=== PATIENT | female | born 1930 | race Caucasian/White ===

== ENCOUNTER 2018-01-15 08:51 | Outpatient (CLI) | payer MEDICARE, BC, OTHER ==
--- NOTE | 2018-01-15 16:20 | NM ---
NUCLEAR MEDICINE BONE SCAN 3-PHASE AND WHOLE BODY: DATE: 01/15/18. HISTORY: An 87-year-old female with a history of multiple fractures in multiple bones, most recently right rib pain from fall. History of breast cancer. History of left hip replacement surgery in September 2015 . Left hip pain. TECHNIQUE: IV injection of 33 mCi of Technetium 99m-MDP. Dynamic anterior scintigraphy of pelvis and bilateral thighs. Immediate blood pool images of pelvis. Three-hour delayed whole body skeletal scintigraphy in anterior and posterior views. FINDINGS: There are 4 small foci of highly increased bone uptake involving the anterior aspects of the right 4t h rib and right 5th rib, consistent with recent fractures. There is a focus of increased uptake at t he lateral, anterior-distal aspect of the left 8th or 9th rib. There is a levoscoliosis of the lumba r spine, with associated mildly increased uptake representing lumbar spondylosis. Photopenic defect a t left anterior upper chest represents AICD generator. There is a photopenic defect at the expected location of the left femoral head and neck, extending in to the proximal shaft, representing metallic prosthesis. There is diffusely moderately increased upt marce around the femoral stem, and left lateral acetabular roof. Apparently increased uptake along the anterior edge of left iliac wing is probably due to the fact that it is closer to the detectore. The re is somewhat intensely increased uptake in the proximal-mid femoral diaphysis around the distal tip of the femoral stem. Asymmetrically increased uptake in the right foot and one of the right toes. In the dynamic and immediate blood pool images, there is no convincing evidence of increased blood fl ow or increased soft tissue uptake around the left hip prosthesis. IMPRESSION: 1. Increased bone uptake at the distal tip of the stem of the left hip replacement arthroplasty hard lee is abnormal after 2 years post surgery, suggestive of early hardware loosening . 2. No evidence of cellulitis around the left hip, and therefore, this makes osteomyelitis unlikely. 3. Evidence for acute, traumatic, nondisplaced fractures of the right 4th and 5th ribs, and the ante rolateral aspect of the left 8th or 9th rib. 4. Lower lumbar scoliosis. 5. Nonspecific increased uptake in the right foot. 6. No convincing evidence of skeletal metastasis. POS: [facility]
== END 2018-01-15 08:52 | disposition home or self-care (01) ==
LOC: NM 08:51
PROVIDERS: ATTEND Family Medicine
DX: Z47.1 Aftercare following joint replacement surgery (principal); S22.43XA Multiple fractures of ribs, bilateral, initial encounter for closed fracture; L03.116 Cellulitis of left lower limb; M41.126 Adolescent idiopathic scoliosis, lumbar region; Z96.642 Presence of left artificial hip joint
CPT/HCPCS: 78315; A9503

== ENCOUNTER 2018-06-24 14:00 | Inpatient (IN) | payer MEDICARE, BC, OTHER ==
[2018-06-24 14:28] VITALS: BMI 27.8
[2018-06-24 15:49] LABS: #Eosinphils 0.2 thou/uL (0.0-0.7); #Lymphocytes 1.9 thou/uL (1.20-3.40); #Monocytes 0.7 thou/uL (0.11-0.59); #Neutrophils 2.9 thou/uL (1.40-6.50); %Basophils 0.3 % (0.0-1.0); %Eosinophils 3.9 % (0.0-10.0); %Lymphocytes 32.7 % (21.0-51.0); %Monocytes 11.4 % (0.0-10.0); %Neutrophils 51.6 % (42.0-75.0); Hemoglobin 9.8 g/dL (12.0-16.0); Mean Corpuscular HGB CONC 34.2 g/dL (32.0-36.0); Mean Corpuscular Hemoglobin 32.6 pg (27.0-31.0); Mean Corpuscular Volume 95.3 fL (78.0-98.0); Mean Platelet Volume 10.6 fL (7.4-10.4); Platelet Count 165 thou/uL (130-400); RBC Distribution Width 13.1 % (11.5-14.5); Red Blood Cell (RBC) Count 3.02 mill/uL (4.20-5.40); White Blood Cell (WBC) Count 5.7 thou/uL (4.8-10.8)
[2018-06-24 15:54] LABS: INR-International Normal Ratio 1.1; Prothrombin Time 14.1 SEC (12.0-14.7)
[2018-06-24 15:58] LABS: Bilirubin Negative (Negative); Blood, Urine Moderate (Negative); Clarity TURBID (Clear); Glucose, Urine (Dipstick) Negative (Negative); Leukocyte Large (Negative); Nitrite Positive (Negative); Protein, Urine (Dipstick) 30 mg/dL (Neg-Trace); Specific Gravity, Urine 1.015 (1.002-1.036); Urobilinogen 0.2 mg/dL (0.2-1.0); pH, Urine 6.5 (5.0-9.0)
[2018-06-24 16:00] LABS: Squamous Epithelial 0-3 HPF (0-3)
[2018-06-24 16:02] LABS: Pathc Cast-AUWi Flag 7.02 (0-2.49); Yeast-AUWi Flag 106.8 (0-25.0)
[2018-06-24 16:08] LABS: Anion Gap 13 mmol/L (10-20); BUN (Urea Nitrogen) 34 mg/dL (9.8-20.1); Calc. Creatinine Clearance 0 mL/min (70-130); Calcium 8.7 mg/dL (7.8-10.44); Carbon Dioxide 23 mmol/L (23-31); Chloride 108 mmol/L (98-107); Estimated GFR-MDRD 23; Glucose 93 mg/dL (83-110); Sodium 140 mmol/L (136-145)
[2018-06-24 16:13] LABS: Bacteria/HPF 2+ HPF (None Seen)
[2018-06-24 16:14] LABS: Hyaline Casts/LPF NONE SEEN LPF (0-3 Hyaline); Other Casts/LPF None Seen LPF (0-3 Hyaline); Yeast-All Forms None Seen HPF (None Seen)
[2018-07-01] MEDS ORDERED: Midazolam HCl 2 mg/2 ml Vial ONE (08:14)
[2018-07-01] MEDS ORDERED: Fentanyl 100 MCG/2 ML VIAL ONE ×2 (08:14→10:22)
[2018-07-01] MEDS ORDERED: CEFAZOLIN/Water 2 GM/20 ML SYRINGE ONE (08:25)
[2018-07-01] MEDS ORDERED: Metoprolol Tartrate 5 MG/5 ML VIAL ONE (08:25)
[2018-07-01] MEDS ORDERED: Sodium Chloride 0.9% 100 ML ONE (08:25)
[2018-07-01] MEDS ORDERED: diphenhydrAMINE 50 MG/ML VIAL IM PRN (09:00)
[2018-07-01] MEDS ORDERED: HYDROcodone/Acetaminophen 5/325 mg Tablet PO PRN (09:00)
[2018-07-01] MEDS ORDERED: Naloxone HCl 0.4 mg/ml Vial IVP PRN (09:00)
[2018-07-01] MEDS ORDERED: Naloxone HCl 0.4 mg/ml Vial IV PRN (09:00)
[2018-07-01] MEDS ORDERED: Hydrocerin (Eucerin) Cream 120 gm Jar TOP PRN (09:00)
[2018-07-01] MEDS ORDERED: traMADol HCl 50 MG TAB PO PRN ×2 (09:00→09:46)
[2018-07-01] MEDS ORDERED: Bupivacaine 0.25% 10 ML VIAL EPIDURAL PRN (09:00)
[2018-07-01] MEDS ORDERED: Zolpidem Tartrate 5 MG TAB PO PRN ×2 (09:00→09:46)
[2018-07-01] MEDS ORDERED: Promethazine HCl 25 MG SUPP PR PRN (09:00)
[2018-07-01] MEDS ORDERED: diphenhydrAMINE 50 MG/ML VIAL IVP PRN (09:00)
[2018-07-01] MEDS ORDERED: Ondansetron HCl/PF 4 MG/2 ML Vial IVP PRN ×3 (09:00→11:44)
[2018-07-01] MEDS ORDERED: fentaNYL Citrate/PF 1,250 MCG, Bupivacaine 25 ML in Sodium Chloride 0.9% 250 ML 200 ML EPIDURAL SCH (09:00)
[2018-07-01] MEDS ORDERED: Promethazine HCl 25 MG/ML VIAL IM PRN ×3 (09:00→11:44)
[2018-07-01] MEDS ORDERED: HYDROcodone/Acetaminophen 10/325 mg Tablet PO PRN ×2 (09:46)
[2018-07-01] MEDS ORDERED: Acetaminophen 325 MG TAB PO PRN (09:46)
[2018-07-01] MEDS ORDERED: Fentanyl 100 MCG/2 ML VIAL SLOW IVP PRN (09:46)
[2018-07-01] MEDS ORDERED: diphenhydrAMINE 25 MG CAP PO PRN (09:46)
[2018-07-01] MEDS ORDERED: Ondansetron ODT 4 MG TAB ONE (09:52)
[2018-07-01] MEDS ORDERED: Ondansetron HCl/PF 4 MG/2 ML Vial ONE (10:17)
[2018-07-01] MEDS ORDERED: Metoclopramide HCl 10 MG/2 ML VIAL ONE ×3 (10:17→14:52)
[2018-07-01] MEDS ORDERED: Glycopyrrolate 0.2 MG/ML 5 ML SYRINGE ONE (10:17)
[2018-07-01] MEDS ORDERED: Lidocaine 1% PF 5 ML VIAL ONE (10:17)
[2018-07-01] MEDS ORDERED: ePHEDrine/0.9% NaCl/PF SYRINGE 50 mg/10 ml ONE (10:17)
[2018-07-01] MEDS ORDERED: PROPOFOL 200 MG/20 ML VIAL ONE (10:17)
[2018-07-01] MEDS ORDERED: Levofloxacin 500 mg/D5W 100 ml Premix Bag ONE (11:01)
[2018-07-01] MEDS ORDERED: Promethazine HCl 25 MG/ML VIAL SLOW IVP PRN (11:44)
--- NOTE | 2018-07-01 13:21 | RAD ---
TWO VIEWS LEFT FEMUR: HISTORY: In the ER, looking for a break. FINDINGS: The visualized left femur does not demonstrate a fracture. There is an intramedullary abdias. There is also a prosthesis at the level of the acetabulum. There does not appear to be a connection between these 2 regions. Heterotopic bone formation is noted. IMPRESSION: No obvious fracture involving the visualized left femur. Note, the entire proximal left femur is not included on the lateral projection. POS: [facility]
[2018-07-01] MEDS ORDERED: Bacitracin Zinc Ointment 30 gm TUBE ONE (14:18)
[2018-07-01] MEDS ORDERED: Promethazine HCl 25 MG/ML VIAL ONE (14:19)
[2018-07-01] MEDS ORDERED: Bupivacaine 0.5% 10 ML VIAL ONE (14:19)
[2018-07-01] MEDS ORDERED: Carvedilol 6.25 MG TAB PO SCH (17:00)
[2018-07-01] MEDS: Dextrose 5 %-0.45 % NaCl 1,000 ML IV SCH ×3 (17:52→21:07)
[2018-07-01] MEDS: CEFAZOLIN/Water 2 GM/20 ML SYRINGE SLOW IVP SCH (17:55)
--- NOTE | 2018-07-01 19:53 | PDOC.PN ---
- Subjective Encounter Start Date: 07/01/18 Encounter Start Time: 18:00 Patient seen and examined for medical mngt. Pain controlled. No CP/SOB. No new complaints. - Objective Vital Signs & Weight: Vital Signs (12 hours) Temp Pulse Resp BP Pulse Ox 07/01/18 18:14 97.1 F L 07/01/18 16:10 93.9 F L 62 14 91/53 L 95 Weight Weight 162 lb I&O: 06/30/18 07/01/18 07/02/18 06:59 06:59 06:59 Intake Total 740 Balance 740 Result Diagrams: 06/24/18 15:15 06/24/18 15:15 EKG Reviewed by me: Yes (Paced) Phys Exam - Physical Examination Constitutional: NAD Respiratory: no wheezing, no rales, no rhonchi Cardiovascular: RRR, no rub Gastrointestinal: soft, non-tender, positive bowel sounds Musculoskeletal: no edema Neurological: moves all 4 limbs Dx/Plan - Plan DVT proph w/SCDs IMPRESSION: 1. CAD s/p recent BMS placement to mid LAD 2. Chronic systolic HF - EF 25-30 % due to ischemic cardiomyopathy - ACC stage C 3. h/o Vent tachycardia s/p AICD 4. HTN 5. HLD 6. CKD 4 PLAN: Monitor closely for volume overload Will dc IV fluids once tolerating PO - reduce rate to 75 for now. AM labs Cont ASA/Coreg/Statins/Imdur Cont Lasix Repeat UA - UA from last week showed UTI Full code - DPOA - self/family Thank you for this consultation - Will follow. Review of Systems - Review of Systems Respiratory: negative: Cough, Dry, Shortness of Breath, Hemoptysis, SOB with Excertion, Pleuritic Pain, Sputum, Wheezing Cardiovascular: negative: chest pain, palpitations, orthopnea, paroxysmal nocturnal dyspnea, edema, light headedness, other - Medications/Allergies Allergies/Adverse Reactions: Allergies Allergy/AdvReac Type Severity Reaction Status Date / Time No Known Drug Allergies Allergy Verified 05/20/18 10:46 Medications: Current Medications Acetaminophen (Tylenol) 650 mg PO Q4H PRN PRN Reason: DOMÍNGUEZ/ T > 101F; Mild Pain (1-3) Hydrocodone Bitart/Acetaminophen ([place] 5/325) 1 tab PO Q4H PRN PRN Reason: Mild Pain 0-3 Hydrocodone Bitart/Acetaminophen ([place] 5/325) 2 tab PO Q4H PRN PRN Reason: For Moderate Pain 4-6 Aspirin (Aspirin Chewable) 81 mg PO BID [facility] Atorvastatin Calcium (Lipitor) 80 mg PO DAILY [facility] Calcium Carbonate (Caltrate) 600 mg PO DAILY [facility] Carvedilol (Coreg) 12.5 mg PO BID-[facility] Last Admin: 07/01/18 18:05 Dose: Not Given Cefazolin Sodium (Ancef) 2 gm SLOW IVP 0100,0900,1700 [facility] Stop: 07/02/18 01:01 Last Admin: 07/01/18 17:55 Dose: 2 gm Cholecalciferol (Vitamin D3) 500 units PO DAILY [facility] Coenzyme Q10 (Coenzyme Q10) 400 mg PO DAILY [facility] Diphenhydramine HCl (Benadryl) 25 mg PO Q3H PRN PRN Reason: Itching Diphenhydramine HCl (Benadryl) 25 mg IM Q3H PRN PRN Reason: Itching Diphenhydramine HCl (Benadryl) 25 mg IVP Q3H PRN PRN Reason: Itching Diphenhydramine HCl (Benadryl) 25 mg PO Q6H PRN PRN Reason: Itching Ezetimibe (Zetia) 10 mg PO DAILY [facility] Emollient Cream (Hydrocerin Cream) 0 gm TOP PRN PRN PRN Reason: Itching Ferrous Gluconate (Fergon) 324 mg PO BID [facility] Furosemide (Lasix) 20 mg PO MWF [facility] Furosemide (Lasix) 40 mg PO SuTuThSa@0900 [facility] Fentanyl Citrate 1,250 mcg/Bupivacaine HCl 25 ml/ Sodium Chloride 250 mls @ 0 mls/hr EPIDURAL INF [facility] Dextrose/Sodium Chloride (D5 1/2 Ns) 1,000 mls @ 100 mls/hr IV .Q10H [facility] Last Admin: 07/01/18 17:52 Dose: 1,000 mls Levofloxacin 500 mg/ Device 100 mls @ 100 mls/hr IVPB 1100 [facility] Iron/Minerals/Multivitamins (Theragran M) 1 tab PO DAILY [facility] Isosorbide Mononitrate (Imdur Er) 30 mg PO DAILY [facility] Miscellaneous Information (Communication Order-Pharmacy) 1 each FS ASDIR [facility] Naloxone HCl (Narcan) 0.2 mg IV Q5MIN PRN PRN Reason: RR <=8 OR OBTUNDED/UNAROUSABLE Naloxone HCl (Narcan) 0.1 mg IVP Q15MIN PRN PRN Reason: URINARY RETENTION Ondansetron HCl (Zofran) 4 mg IVP Q6H PRN PRN Reason: Nausea/Vomiting Ondansetron HCl (Zofran) 4 mg IVP Q6H PRN PRN Reason: Nausea/Vomiting Promethazine HCl (Phenergan) 12.5 mg IM Q4H PRN PRN Reason: Nausea Promethazine HCl (Phenergan Suppository) 25 mg [place] Q4H PRN PRN Reason: Nausea/Vomiting Promethazine HCl (Phenergan) 12.5 mg IM Q4H PRN PRN Reason: Nausea/Vomiting Senna/Docusate Sodium (Senokot S) 2 tab PO BID [facility] Sodium Chloride (Flush - Normal Saline) 10 ml IVF PRN PRN PRN Reason: Saline Flush Tramadol HCl (Ultram) 50 mg PO Q6H PRN PRN Reason: Mild Pain 1-3 Tramadol HCl (Ultram) 100 mg PO Q6H PRN PRN Reason: Moderate Pain 4-6 Zolpidem Tartrate (Ambien) 5 mg PO HSPRN PRN PRN Reason: Insomnia
[2018-07-01] MEDS: diphenhydrAMINE 25 MG CAP PO PRN (20:24)
[2018-07-01 23:16] LABS: Bilirubin Negative (Negative); Blood, Urine Small (Negative); Clarity CLOUDY (Clear); Glucose, Urine (Dipstick) Negative (Negative); Leukocyte Large (Negative); Nitrite Negative (Negative); Protein, Urine (Dipstick) Trace mg/dL (Neg-Trace); Specific Gravity, Urine 1.017 (1.002-1.036); Urobilinogen 0.2 mg/dL (0.2-1.0)
[2018-07-01 23:18] LABS: Bacteria/HPF None Seen HPF (None Seen); Hyaline Casts/LPF 0-3 HYALINE CAST LPF (0-3 Hyaline); Pathc Cast-AUWi Flag 0.29 (0-2.49); Squamous Epithelial None Seen HPF (0-3)
[2018-07-02] MEDS: CEFAZOLIN/Water 2 GM/20 ML SYRINGE SLOW IVP SCH (00:45)
--- NOTE | 2018-07-02 01:12 | OP ---
PREOPERATIVE DIAGNOSIS: Failed hemiarthroplasty, cemented type of the left hip. POSTOPERATIVE DIAGNOSIS: Failed hemiarthroplasty, cemented type of the left hip. PROCEDURES: Removal of hardware and conversion of previous hip surgery to total hip arthroplasty. SURGEON: Varghese Yan MD EMPLOYEE DEVELOPMENT DIRECTOR: Miguel Arneas PA-C BLOOD LOSS: About 300. SPECIMENS: Cultures were sent of tissue and fluid which appeared to be a chronic hemarthrosis. Also , urine culture was sent. DRAINS: None. COMPLICATIONS: None. DESCRIPTION OF PROCEDURE: The patient was taken to the operating room where general anesthesia was i nduced. The patient was placed in the right lateral decubitus position and the left leg was prepped and draped in the usual sterile fashion. She received vancomycin, Ancef, and Levaquin preoperatively . I added Levaquin because of her urinary tract possible infection based on her cloudy urine. I ope manuel up a little bit less than her previous scar. Dissection carried down to the IT band, which was d ivided distally and extended proximally. Most of the abductors had been completely avulsed. The minnie ented implant was removed with very painstaking process, it took about an hour and a half. I removed the metal implant first of all and then I used cement chisels and pituitary rongeurs to sequentially away and removed the cement. Once the implants were removed, I then exposed the acetabulum. I placed a 54 mm acetabulum without adjunctive screws and the upper mattaponi acetabulum which has been reamed to 53 with excellent press fit fixation and I did not feel other fixation was required. I placed th e liner for the [place] MDM prosthesis in the acetabulum, checked it for stability and appeared to be very stable. Attention was turned back to the femur. I did take on-table x-rays after I placed the distal stem and just to make sure there were no fractures or osteotomies performed did not see any of that. I went ahead and completed this out with a size 18 stem and a +10 head and neck replac ement prosthesis with a standard head and then placed the MDM prosthesis on top of this. This gave e xcellent stability throughout a range of motion, restored leg length. Irrigation was performed. Tri als were removed. Permanent implants were impacted into place in the port. The hip was reduced and repaired what abductors I could tease out and find, which was certainly very limited amount of abduct or tissue. IT band was repaired with #1 Vicryl and #2 Quill, subcu was closed with 0 Quill, and skin was closed with Monoderm. Sterile dressings were applied.
[2018-07-02 04:57] LABS: Hemoglobin 7.7 g/dL (12.0-16.0); Mean Corpuscular HGB CONC 33.8 g/dL (32.0-36.0); Mean Corpuscular Hemoglobin 32.5 pg (27.0-31.0); Mean Corpuscular Volume 96.1 fL (78.0-98.0); Mean Platelet Volume 10.9 fL (7.4-10.4); Platelet Count 120 thou/uL (130-400); RBC Distribution Width 13.2 % (11.5-14.5); Red Blood Cell (RBC) Count 2.36 mill/uL (4.20-5.40); White Blood Cell (WBC) Count 6.9 thou/uL (4.8-10.8)
[2018-07-02 05:15] LABS: Anion Gap 11 mmol/L (10-20); BUN (Urea Nitrogen) 32 mg/dL (9.8-20.1); Calc. Creatinine Clearance 26 mL/min (70-130); Calcium 7.6 mg/dL (7.8-10.44); Carbon Dioxide 20 mmol/L (23-31); Chloride 109 mmol/L (98-107); Estimated GFR-MDRD 26; Glucose 119 mg/dL (83-110); Magnesium 1.8 mg/dL (1.6-2.6); Sodium 136 mmol/L (136-145)
[2018-07-02] MEDS: diphenhydrAMINE 25 MG CAP PO PRN ×4 (05:34→21:17)
[2018-07-02] MEDS: Dextrose 5 %-0.45 % NaCl 1,000 ML IV SCH ×2 (06:03→22:43)
[2018-07-02] MEDS ORDERED: UBIDECARENONE 400 MG PO SCH (09:00)
[2018-07-02] MEDS ORDERED: Aspirin 81 mg Enteric Coated Tablet PO SCH (09:00)
[2018-07-02] MEDS ORDERED: Furosemide 20 MG TAB PO SCH (09:00)
[2018-07-02] MEDS: Carvedilol 6.25 MG TAB PO SCH ×2 (09:18→17:53)
[2018-07-02] MEDS: Ubidecarenone 50 MG CAP PO SCH (09:18)
[2018-07-02] MEDS: Atorvastatin Calcium 40 MG TAB PO SCH (09:18)
[2018-07-02] MEDS: Multivitamin W/ Minerals 1 TAB PO SCH (09:19)
[2018-07-02] MEDS: Ezetimibe 10 MG TAB PO SCH (09:19)
[2018-07-02] MEDS: Calcium Carbonate 600 MG TAB PO SCH (09:19)
[2018-07-02] MEDS: Senokot S 8.6-50 MG TAB PO SCH ×2 (09:19→21:15)
[2018-07-02] MEDS: Ferrous Gluconate 324 MG TAB PO SCH ×2 (09:19→21:16)
[2018-07-02] MEDS: cefTRIAXone\\ROCEPHIN 1 GM in Sodium Chloride 0.9% 100 ML IVPB SCH (09:28)
--- NOTE | 2018-07-02 10:45 | PQF ---
CLINICAL DOCUMENTATION IMPROVEMENT CLARIFICATION FORM: ICD-10 Updated PLEASE DO AN ADDENDUM TO THE PROGRESS NOTE WITH ANY DOCUMENTATION UPDATES OR ADDITIONS AND CARRY THROUGH TO DC SUMMARY. THANK YOU. DATE: 07/02/18 ATTN: DR. BARBOSA Please exercise your independent, professional judgment in responding to the clarification form. Clinical indicators are provided on the bottom of this form for your review Please check appropriate box(s): [ x ] Acute blood loss anemia [ ] Post-op anemia related to acute blood loss [ ] Anemia: [ ] Aplastic [ ] Nutritional [ ] Drug induced (specify) ___ [ ] Hemolytic [ ] Hereditary [ ] Acquired [ ] Autoimmune [ ] Non-autoimmune [ ] Enzyme disorder [ ] Chronic Anemia: [ ] Blood loss [ ] Hemolytic [ ] Simple [ ] Due to Vitamin B12 Deficiency [ ] Other [ ] Anemia of Chronic Disease (please specify) [ ] Anemia due to Neoplasm: [ ] Primary [ ] Secondary [ ] Anemia due to (please choose): [ ] Due to Chemotherapy [ ] Due to Radiotherapy [ ] Due to Immunotherapy [ ] Other diagnosis [ ] Unable to determine In addition, please specify: Present on Admission (POA): [ ] Yes [ ] No [ ] Unable to determine For continuity of documentation, please document condition throughout progress notes and discharge summary. Thank You. CLINICAL INDICATORS - SIGNS / SYMPTOMS / LABS HGN 06/24: 9.8 HGN 07/02: 7.7 OP NOTE 07/01: "BLOOD LOSS- ABOUT 300" RISKS: TOTAL HIP ARTHROPLASTY TREATMENT: BLOOD TRANSFUSIONS X2 (This form is maintained as a part of the permanent medical record) 2014 [employer]. All Rights Reserved PHILLIP [email or web address] Office: [phone] ETTA
[2018-07-02] MEDS: Bupivacaine 10 ML in Sodium Chloride 0.9% 90 ML EPIDURAL SCH ×2 (11:48→23:58)
--- NOTE | 2018-07-02 15:31 | RAD ---
LEFT FEMUR 2 VIEWS: Date: 07/01/18 HISTORY: Status post arthroplasty. COMPARISON: None. FINDINGS: There is a left hip arthroplasty without evidence of complication or lucency. Alignment is anatomic. Expected postoperative changes of the soft tissues are noted. IMPRESSION: Status post arthroplasty. POS: [facility]
--- NOTE | 2018-07-02 21:01 | PDOC.PN ---
- Subjective Encounter Start Date: 07/02/18 Encounter Start Time: 11:30 Patient seen and examined for med mgnt. No new complaints. Pain controlled. No CP/SOB or palpitations. No overnight events - Objective MAR Reviewed: Yes Vital Signs & Weight: Vital Signs (12 hours) Temp Pulse Pulse Pulse Resp BP BP 07/02/18 19:48 99 F 76 16 07/02/18 17:53 121/70 07/02/18 16:00 98.1 F 72 20 07/02/18 13:45 71 74 64/32 L 07/02/18 12:43 98.3 F 70 16 07/02/18 09:18 147/81 H BP BP Pulse Ox 07/02/18 19:48 103/60 88 L 07/02/18 17:53 07/02/18 16:00 121/70 90 L 07/02/18 13:45 90/55 L 07/02/18 12:43 90/56 L 95 07/02/18 09:18 Weight Admit Weight 162 lb Weight 162 lb I&O: 07/01/18 07/02/18 07/03/18 06:59 06:59 06:59 Intake Total 1640 Output Total 550 925 Balance 1090 -925 Result Diagrams: 07/03/18 04:29 07/03/18 04:29 Phys Exam - Physical Examination Constitutional: NAD Respiratory: no wheezing, no rhonchi Cardiovascular: RRR, no rub Gastrointestinal: soft, non-tender, positive bowel sounds Musculoskeletal: no edema Neurological: moves all 4 limbs Dx/Plan - Plan DVT proph w/SCDs IMPRESSION: 1. CAD s/p recent BMS placement to mid LAD 2. Chronic systolic HF - EF 25-30 % due to ischemic cardiomyopathy - ACC stage C 3. Acute Blood loss Anemia 4. HTN 5. UTI 6. CKD 4 7. h/o Vent tachycardia s/p AICD / HLD PLAN: Will dc IV fluids once tolerating PO Monitor HH Cont current meds including ASA/Coreg/Imdur/Statins Cont Lasix PO Start IV Ceftriaxone Await Urine culture Review of Systems - Review of Systems Respiratory: negative: Cough, Dry, Shortness of Breath, Hemoptysis, SOB with Excertion, Pleuritic Pain, Sputum, Wheezing Cardiovascular: negative: chest pain, palpitations, orthopnea, paroxysmal nocturnal dyspnea, edema, light headedness, other Gastrointestinal: negative: Nausea, Vomiting, Abdominal Pain, Diarrhea, Constipation, Melena, Hematochezia, Other - Medications/Allergies Allergies/Adverse Reactions: Allergies Allergy/AdvReac Type Severity Reaction Status Date / Time fentanyl AdvReac Intermediate Hives Verified 07/02/18 17:57 Medications: Current Medications Acetaminophen (Tylenol) 650 mg PO Q4H PRN PRN Reason: DOMÍNGUEZ/ T > 101F; Mild Pain (1-3) Hydrocodone Bitart/Acetaminophen ([place] 5/325) 1 tab PO Q4H PRN PRN Reason: Mild Pain 0-3 Hydrocodone Bitart/Acetaminophen ([place] 5/325) 2 tab PO Q4H PRN PRN Reason: For Moderate Pain 4-6 Aspirin (Aspirin Chewable) 81 mg PO BID [facility] Last Admin: 07/02/18 09:19 Dose: 81 mg Atorvastatin Calcium (Lipitor) 80 mg PO DAILY [facility] Last Admin: 07/02/18 09:18 Dose: 80 mg Calcium Carbonate (Caltrate) 600 mg PO DAILY [facility] Last Admin: 07/02/18 09:19 Dose: 600 mg Carvedilol (Coreg) 12.5 mg PO BID-[facility] Last Admin: 07/02/18 17:53 Dose: 12.5 mg Cholecalciferol (Vitamin D3) 500 units PO DAILY [facility] Last Admin: 07/02/18 09:20 Dose: 500 units Coenzyme Q10 (Coenzyme Q10) 400 mg PO DAILY [facility] Last Admin: 07/02/18 09:18 Dose: 400 mg Diphenhydramine HCl (Benadryl) 25 mg PO Q3H PRN PRN Reason: Itching Last Admin: 07/02/18 14:16 Dose: 25 mg Diphenhydramine HCl (Benadryl) 25 mg IM Q3H PRN PRN Reason: Itching Diphenhydramine HCl (Benadryl) 25 mg IVP Q3H PRN PRN Reason: Itching Diphenhydramine HCl (Benadryl) 25 mg PO Q6H PRN PRN Reason: Itching Ezetimibe (Zetia) 10 mg PO DAILY [facility] Last Admin: 07/02/18 09:19 Dose: 10 mg Emollient Cream (Hydrocerin Cream) 0 gm TOP PRN PRN PRN Reason: Itching Ferrous Gluconate (Fergon) 324 mg PO BID [facility] Last Admin: 07/02/18 09:19 Dose: 324 mg Furosemide (Lasix) 20 mg PO MWF [facility] Last Admin: 07/02/18 09:18 Dose: 20 mg Furosemide (Lasix) 40 mg PO SuTuThSa@0900 [facility] Levofloxacin 500 mg/ Device 100 mls @ 100 mls/hr IVPB 1100 [facility] Last Admin: 07/02/18 11:48 Dose: 100 mls Dextrose/Sodium Chloride (D5 1/2 Ns) 1,000 mls @ 75 mls/hr IV .[id number] [facility] Last Admin: 07/02/18 06:03 Dose: 1,000 mls Ceftriaxone Sodium 1 gm/ (Sodium Chloride) 100 mls @ 200 mls/hr IVPB Q24HR [facility] Last Admin: 07/02/18 09:28 Dose: 100 mls Bupivacaine HCl 10 ml/ Sodium (Chloride) 100 mls @ 8 mls/hr EPIDURAL INF [facility] Last Admin: 07/02/18 11:48 Dose: 100 mls Iron/Minerals/Multivitamins (Theragran M) 1 tab PO DAILY [facility] Last Admin: 07/02/18 09:19 Dose: 1 tab Isosorbide Mononitrate (Imdur Er) 30 mg PO DAILY [facility] Last Admin: 07/02/18 09:19 Dose: 30 mg Miscellaneous Information (Communication Order-Pharmacy) 1 each FS ASDIR [facility] Naloxone HCl (Narcan) 0.2 mg IV Q5MIN PRN PRN Reason: RR <=8 OR OBTUNDED/UNAROUSABLE Naloxone HCl (Narcan) 0.1 mg IVP Q15MIN PRN PRN Reason: URINARY RETENTION Ondansetron HCl (Zofran) 4 mg IVP Q6H PRN PRN Reason: Nausea/Vomiting Promethazine HCl (Phenergan) 12.5 mg IM Q4H PRN PRN Reason: Nausea Promethazine HCl (Phenergan Suppository) 25 mg [place] Q4H PRN PRN Reason: Nausea/Vomiting Senna/Docusate Sodium (Senokot S) 2 tab PO BID [facility] Last Admin: 07/02/18 09:19 Dose: 2 tab Sodium Chloride (Flush - Normal Saline) 10 ml IVF PRN PRN PRN Reason: Saline Flush Tramadol HCl (Ultram) 50 mg PO Q6H PRN PRN Reason: Mild Pain 1-3 Tramadol HCl (Ultram) 100 mg PO Q6H PRN PRN Reason: Moderate Pain 4-6 Zolpidem Tartrate (Ambien) 5 mg PO HSPRN PRN PRN Reason: Insomnia
[2018-07-02] MEDS: HYDROcodone/Acetaminophen 5/325 mg Tablet PO PRN (21:15)
[2018-07-03 05:31] LABS: Hemoglobin 6.9 g/dL (12.0-16.0); Mean Corpuscular HGB CONC 33.9 g/dL (32.0-36.0); Mean Corpuscular Hemoglobin 32.4 pg (27.0-31.0); Mean Corpuscular Volume 95.4 fL (78.0-98.0); Mean Platelet Volume 10.3 fL (7.4-10.4); Platelet Count 91 thou/uL (130-400); RBC Distribution Width 13.1 % (11.5-14.5); Red Blood Cell (RBC) Count 2.14 mill/uL (4.20-5.40); White Blood Cell (WBC) Count 6.8 thou/uL (4.8-10.8)
[2018-07-03 05:39] LABS: Anion Gap 10 mmol/L (10-20); BUN (Urea Nitrogen) 30 mg/dL (9.8-20.1); Calc. Creatinine Clearance 21 mL/min (70-130); Calcium 8.1 mg/dL (7.8-10.44); Carbon Dioxide 22 mmol/L (23-31); Chloride 107 mmol/L (98-107); Estimated GFR-MDRD 21; Glucose 110 mg/dL (83-110); Potassium 3.9 mmol/L (3.5-5.1); Sodium 135 mmol/L (136-145)
[2018-07-03] MEDS: Senokot S 8.6-50 MG TAB PO SCH ×2 (08:57→20:08)
[2018-07-03] MEDS: cefTRIAXone\\ROCEPHIN 1 GM in Sodium Chloride 0.9% 100 ML IVPB SCH (08:57)
[2018-07-03] MEDS: Atorvastatin Calcium 40 MG TAB PO SCH (08:57)
[2018-07-03] MEDS: Ezetimibe 10 MG TAB PO SCH (08:57)
[2018-07-03] MEDS: Carvedilol 6.25 MG TAB PO SCH ×2 (08:58→17:36)
[2018-07-03] MEDS: Ferrous Gluconate 324 MG TAB PO SCH ×2 (08:59→20:08)
[2018-07-03] MEDS: Furosemide 40 MG TAB PO SCH (08:59)
[2018-07-03] MEDS: Multivitamin W/ Minerals 1 TAB PO SCH (08:59)
[2018-07-03] MEDS: Calcium Carbonate 600 MG TAB PO SCH (08:59)
[2018-07-03] MEDS: Ubidecarenone 50 MG CAP PO SCH (10:32)
[2018-07-03] MEDS ORDERED: Furosemide 20 MG/2 ML VIAL SLOW IVP SCH (11:00)
[2018-07-03] MEDS: Bupivacaine 10 ML in Sodium Chloride 0.9% 90 ML EPIDURAL SCH (14:23)
--- NOTE | 2018-07-03 21:23 | PDOC.PN ---
- Subjective Encounter Start Date: 07/03/18 Encounter Start Time: 13:30 Patient seen and examined for med mngt. No CP/SOB. No new complaints. No overnight events - Objective MAR Reviewed: Yes Vital Signs & Weight: Vital Signs (12 hours) Temp Pulse Pulse Resp BP BP BP 07/03/18 20:00 99.4 F 76 16 116/63 07/03/18 17:36 125/66 07/03/18 14:57 98.6 F 75 18 125/66 07/03/18 12:30 98.3 F 76 18 101/61 07/03/18 11:45 98.1 F 79 18 151/87 H 07/03/18 11:32 98 F 72 20 84/41 L 07/03/18 09:57 98.9 F 70 18 97/61 07/03/18 09:41 98.3 F 18 100/61 Pulse Ox 07/03/18 20:00 91 L 07/03/18 17:36 07/03/18 14:57 92 L 07/03/18 12:30 93 L 07/03/18 11:45 93 L 07/03/18 11:32 92 L 07/03/18 09:57 93 L 07/03/18 09:41 Weight Admit Weight 162 lb Weight 162 lb I&O: 07/02/18 07/03/18 07/04/18 06:59 06:59 06:59 Intake Total 1640 1175 Output Total 959 039 3966 Balance 1090 -925 -600 Result Diagrams: 07/03/18 04:29 07/03/18 04:29 Phys Exam - Physical Examination Constitutional: NAD Respiratory: no wheezing, no rhonchi Cardiovascular: RRR, no rub Gastrointestinal: soft, non-tender, positive bowel sounds Musculoskeletal: no edema Neurological: moves all 4 limbs Dx/Plan - Plan DVT proph w/SCDs IMPRESSION: 1. CAD s/p recent BMS placement to mid LAD - on ASA 2. Chronic systolic HF - EF 25-30 % due to ischemic cardiomyopathy 3. Acute Blood loss Anemia 4. HTN 5. Enterobacter UTI 6. CKD 4 7. h/o Vent tachycardia s/p AICD / HLD PLAN: Transfuse 1 unit PRBC 1 dose of IV Lasix Monitor HH Cont current meds including ASA/Coreg/Imdur/Statins Cont IV Ceftriaxone Not on ACEI/ARB/Aldactone due to CKD Daily weights Microbiology 07/01/18 11:20 Urine angelo catheter Urine Culture - Final Enterobacter cloacae complex 07/01/18 11:28 Hip - Tissue Bacterial Culture - Preliminary 07/01/18 11:28 Hip - Tissue Anaerobic Culture - Preliminary NO ANAEROBES ISOLATED IN 48 HOURS 07/01/18 11:28 Hip - E swab Bacterial Culture - Preliminary 07/01/18 11:28 Hip - E swab Anaerobic Culture - Preliminary NO ANAEROBES ISOLATED IN 48 HOURS Review of Systems - Review of Systems Respiratory: negative: Cough, Dry, Shortness of Breath, Hemoptysis, SOB with Excertion, Pleuritic Pain, Sputum, Wheezing Cardiovascular: negative: chest pain, palpitations, orthopnea, paroxysmal nocturnal dyspnea, edema, light headedness, other Gastrointestinal: negative: Nausea, Vomiting, Abdominal Pain, Diarrhea, Constipation, Melena, Hematochezia, Other - Medications/Allergies Allergies/Adverse Reactions: Allergies Allergy/AdvReac Type Severity Reaction Status Date / Time fentanyl AdvReac Intermediate Hives Verified 07/02/18 17:57 Medications: Current Medications Acetaminophen (Tylenol) 650 mg PO Q4H PRN PRN Reason: DOMÍNGUEZ/ T > 101F; Mild Pain (1-3) Hydrocodone Bitart/Acetaminophen ([place] 5/325) 1 tab PO Q4H PRN PRN Reason: Mild Pain 0-3 Hydrocodone Bitart/Acetaminophen ([place] 5/325) 2 tab PO Q4H PRN PRN Reason: For Moderate Pain 4-6 Last Admin: 07/02/18 21:15 Dose: 2 tab Aspirin (Aspirin Chewable) 81 mg PO BID [facility] Last Admin: 07/03/18 20:08 Dose: 81 mg Atorvastatin Calcium (Lipitor) 80 mg PO DAILY [facility] Last Admin: 07/03/18 08:57 Dose: 80 mg Calcium Carbonate (Caltrate) 600 mg PO DAILY [facility] Last Admin: 07/03/18 08:59 Dose: 600 mg Carvedilol (Coreg) 12.5 mg [facility] Last Admin: 07/03/18 17:36 Dose: 12.5 mg Cholecalciferol (Vitamin D3) 500 units PO DAILY [facility] Last Admin: 07/03/18 08:59 Dose: 500 units Coenzyme Q10 (Coenzyme Q10) 400 mg PO DAILY [facility] Last Admin: 07/03/18 10:32 Dose: 400 mg Diphenhydramine HCl (Benadryl) 25 mg PO Q3H PRN PRN Reason: Itching Last Admin: 07/02/18 21:17 Dose: 25 mg Diphenhydramine HCl (Benadryl) 25 mg IM Q3H PRN PRN Reason: Itching Diphenhydramine HCl (Benadryl) 25 mg IVP Q3H PRN PRN Reason: Itching Diphenhydramine HCl (Benadryl) 25 mg PO Q6H PRN PRN Reason: Itching Ezetimibe (Zetia) 10 mg PO DAILY [facility] Last Admin: 07/03/18 08:57 Dose: 10 mg Emollient Cream (Hydrocerin Cream) 0 gm TOP PRN PRN PRN Reason: Itching Ferrous Gluconate (Fergon) 324 mg PO BID [facility] Last Admin: 07/03/18 20:08 Dose: 324 mg Furosemide (Lasix) 20 mg PO MWF [facility] Last Admin: 07/02/18 09:18 Dose: 20 mg Furosemide (Lasix) 40 mg PO SuTuThSa@0900 [facility] Last Admin: 07/03/18 08:59 Dose: 40 mg Levofloxacin 500 mg/ Device 100 mls @ 100 mls/hr IVPB 1100 [facility] Stop: 07/03/18 23:59 Last Admin: 07/03/18 12:56 Dose: 100 mls Ceftriaxone Sodium 1 gm/ (Sodium Chloride) 100 mls @ 200 mls/hr IVPB Q24HR [facility] Last Admin: 07/03/18 08:57 Dose: 100 mls Bupivacaine HCl 10 ml/ Sodium (Chloride) 100 mls @ 10 mls/hr EPIDURAL INF [facility] Last Admin: 07/03/18 14:23 Dose: 100 mls Iron/Minerals/Multivitamins (Theragran M) 1 tab PO DAILY [facility] Last Admin: 07/03/18 08:59 Dose: 1 tab Isosorbide Mononitrate (Imdur Er) 30 mg PO DAILY [facility] Last Admin: 07/03/18 08:57 Dose: 30 mg Miscellaneous Information (Communication Order-Pharmacy) 1 each FS ASDIR [facility] Naloxone HCl (Narcan) 0.2 mg IV Q5MIN PRN PRN Reason: RR <=8 OR OBTUNDED/UNAROUSABLE Naloxone HCl (Narcan) 0.1 mg IVP Q15MIN PRN PRN Reason: URINARY RETENTION Ondansetron HCl (Zofran) 4 mg IVP Q6H PRN PRN Reason: Nausea/Vomiting Promethazine HCl (Phenergan) 12.5 mg IM Q4H PRN PRN Reason: Nausea Promethazine HCl (Phenergan Suppository) 25 mg [place] Q4H PRN PRN Reason: Nausea/Vomiting Senna/Docusate Sodium (Senokot S) 2 tab PO BID [facility] Last Admin: 07/03/18 20:08 Dose: 2 tab Sodium Chloride (Flush - Normal Saline) 10 ml IVF PRN PRN PRN Reason: Saline Flush Tramadol HCl (Ultram) 50 mg PO Q6H PRN PRN Reason: Mild Pain 1-3 Tramadol HCl (Ultram) 100 mg PO Q6H PRN PRN Reason: Moderate Pain 4-6 Zolpidem Tartrate (Ambien) 5 mg PO HSPRN PRN PRN Reason: Insomnia
[2018-07-04] MEDS: Bupivacaine 10 ML in Sodium Chloride 0.9% 90 ML EPIDURAL SCH ×2 (00:26→07:56)
[2018-07-04] MEDS: HYDROcodone/Acetaminophen 5/325 mg Tablet PO PRN ×3 (04:59→20:18)
[2018-07-04 06:22] LABS: Hemoglobin 8.1 g/dL (12.0-16.0); Mean Corpuscular HGB CONC 34.3 g/dL (32.0-36.0); Mean Corpuscular Hemoglobin 32.3 pg (27.0-31.0); Mean Corpuscular Volume 94.2 fL (78.0-98.0); Mean Platelet Volume 10.8 fL (7.4-10.4); Platelet Count 109 thou/uL (130-400); Red Blood Cell (RBC) Count 2.51 mill/uL (4.20-5.40); White Blood Cell (WBC) Count 7.8 thou/uL (4.8-10.8)
[2018-07-04] MEDS: cefTRIAXone\\ROCEPHIN 1 GM in Sodium Chloride 0.9% 100 ML IVPB SCH (07:59)
[2018-07-04] MEDS: Ferrous Gluconate 324 MG TAB PO SCH ×2 (08:00→20:18)
[2018-07-04] MEDS: Furosemide 40 MG TAB PO SCH (08:00)
[2018-07-04] MEDS: Ubidecarenone 50 MG CAP PO SCH (08:00)
[2018-07-04] MEDS: Ezetimibe 10 MG TAB PO SCH (08:01)
[2018-07-04] MEDS: Carvedilol 6.25 MG TAB PO SCH ×2 (08:01→16:57)
[2018-07-04] MEDS: Calcium Carbonate 600 MG TAB PO SCH (08:02)
[2018-07-04] MEDS: Multivitamin W/ Minerals 1 TAB PO SCH (08:02)
[2018-07-04] MEDS: Atorvastatin Calcium 40 MG TAB PO SCH (08:02)
[2018-07-04] MEDS: Senokot S 8.6-50 MG TAB PO SCH ×2 (08:02→20:18)
[2018-07-04] MEDS ORDERED: Bisacodyl 10 MG SUPP PR PRN (12:58)
[2018-07-04] MEDS ORDERED: Milk Of Magnesia 30 ML UDCUP PO PRN (12:58)
[2018-07-04] MEDS ORDERED: Polyethylene Glycol 3350 17 GM Packet PO SCH (13:00)
[2018-07-04] MEDS: traMADol HCl 50 MG TAB PO PRN (21:32)
[2018-07-05] MEDS: HYDROcodone/Acetaminophen 5/325 mg Tablet PO PRN ×3 (00:31→13:18)
[2018-07-05 06:03] LABS: Mean Corpuscular HGB CONC 33.4 g/dL (32.0-36.0); Mean Corpuscular Hemoglobin 31.6 pg (27.0-31.0); Mean Corpuscular Volume 94.4 fL (78.0-98.0); Mean Platelet Volume 10.2 fL (7.4-10.4); Platelet Count 121 thou/uL (130-400); RBC Distribution Width 12.9 % (11.5-14.5); Red Blood Cell (RBC) Count 2.54 mill/uL (4.20-5.40)
[2018-07-05 06:26] LABS: Anion Gap 14 mmol/L (10-20); BUN (Urea Nitrogen) 33 mg/dL (9.8-20.1); Calc. Creatinine Clearance 20 mL/min (70-130); Calcium 8.4 mg/dL (7.8-10.44); Carbon Dioxide 22 mmol/L (23-31); Chloride 105 mmol/L (98-107); Estimated GFR-MDRD 20; Glucose 98 mg/dL (83-110); Magnesium 1.9 mg/dL (1.6-2.6); Potassium 3.5 mmol/L (3.5-5.1); Sodium 137 mmol/L (136-145)
[2018-07-05 07:58] VITALS: BP 142/75; TEMP 98
[2018-07-05] MEDS ORDERED: Saccharomyces boulardii 250 MG CAP PO SCH (09:00)
[2018-07-05] MEDS ORDERED: Polyethylene Glycol 3350 17 GM Packet PO SCH (09:00)
[2018-07-05] MEDS: traMADol HCl 50 MG TAB PO PRN (09:11)
[2018-07-05] MEDS: Carvedilol 6.25 MG TAB PO SCH (09:28)
[2018-07-05] MEDS: Ubidecarenone 50 MG CAP PO SCH (09:29)
[2018-07-05] MEDS: Ferrous Gluconate 324 MG TAB PO SCH (09:29)
[2018-07-05] MEDS: Calcium Carbonate 600 MG TAB PO SCH (09:29)
[2018-07-05] MEDS: Ezetimibe 10 MG TAB PO SCH (09:29)
[2018-07-05] MEDS: Atorvastatin Calcium 40 MG TAB PO SCH (09:29)
[2018-07-05] MEDS: cefTRIAXone\\ROCEPHIN 1 GM in Sodium Chloride 0.9% 100 ML IVPB SCH (09:30)
[2018-07-05] MEDS: Multivitamin W/ Minerals 1 TAB PO SCH (09:30)
[2018-07-05] MEDS: Senokot S 8.6-50 MG TAB PO SCH (09:31)
--- NOTE | 2018-07-06 11:56 | DIS ---
DATE OF ADMISSION: 07/01/2018 DATE OF DISCHARGE: 07/05/2018 DISCHARGE OR TRANSFER DISPOSITION: Swing bed. ADMISSION DIAGNOSIS: End-stage bicompartmental osteoarthritis, left knee. DISCHARGE DIAGNOSIS: End-stage bicompartmental osteoarthritis, left knee. OPERATIVE PROCEDURE: Left total hip arthroplasty. CONSULTANTS: [facility] for acute postop pain management and [facility]. BRIEF CLINICAL HISTORY: Silvia is an 87-year-old female who was admitted to [facility] and underwent the above elective procedure on date of admission without intra, wilson, or pos top complication. Her hospital course was significant for inability to reach ADLs in full independen ce; therefore, it was elected to transfer her to swing bed facility for continued efforts at this. A t the time of transfer, the patient is afebrile. She is ambulatory with assist, tolerating regular d iet without difficulty. Her incision is clean and closed without any erythema. DISCHARGE MEDICATIONS: Please see medication reconciliation form. We will be happy to see the patient on an as needed basis between now and her next scheduled appointm ent in 12-14 days. CONDITION ON TRANSFER: Stable. PROGNOSIS: Good.
== END 2018-07-05 14:10 | disposition swing bed (61) | DRG 467 ==
LOC: SJJU 07-01 07:20 → SURG A 07-01 16:27
PROVIDERS: ADMIT Orthopaedic Surgery; ATTEND Orthopaedic Surgery
PROC: 0SPB0JZ Removal of Synthetic Substitute from Left Hip Joint, Open Approach (ICD-10-PCS; principal; 2018-07-01)
PROC: 0SRB0JZ Replacement of Left Hip Joint with Synthetic Substitute, Open Approach (ICD-10-PCS; 2018-07-01)
PROC: 30233N1 Transfusion of Nonautologous Red Blood Cells into Peripheral Vein, Percutaneous Approach (ICD-10-PCS; 2018-07-03)
DX: T84.018A Broken internal joint prosthesis, other site, initial encounter (principal); I50.22 Chronic systolic (congestive) heart failure; D62 Acute posthemorrhagic anemia; N39.0 Urinary tract infection, site not specified; I13.0 Hypertensive heart and chronic kidney disease with heart failure and stage 1 through stage 4 chronic kidney disease, or unspecified chronic kidney disease; N18.4 Chronic kidney disease, stage 4 (severe); I25.10 Atherosclerotic heart disease of native coronary artery without angina pectoris; Z79.82 Long term (current) use of aspirin; B96.89 Other specified bacterial agents as the cause of diseases classified elsewhere; Z95.810 Presence of automatic (implantable) cardiac defibrillator; Z88.8 Allergy status to other drugs, medicaments and biological substances; E78.5 Hyperlipidemia, unspecified; Z85.3 Personal history of malignant neoplasm of breast
CPT/HCPCS: 36415; 36430; 80048; 81001; 83735; 85025; 85027; 85610; 86850; 86900; 86901; 87070; 87077; 87086; 87186; 87205; C1776; G8978-GP-CM; G8979-GP-CK; G8987-GO-CL; G8988-GO-CJ; J0696; J1940; J1956; J2001; J2250; J2405; J2550; J2704; J2765; J3010; J3370; J3490; J7042; J7050; P9016; Q0162

== ENCOUNTER 2019-03-02 14:48 | Outpatient (CLI) | payer MEDICARE, BC, OTHER ==
--- NOTE | 2019-03-02 15:59 | ULT ---
Exam: Bilateral renal ultrasound HISTORY: Chronic kidney disease COMPARISON: 04/28/2016 FINDINGS: Right kidney: Normal cortical echotexture. No hydronephrosis. There is right renal cortical thinning Right kidney measurements: 9.1 x 4.8 x 4.5 cm. Left kidney: Normal cortical echotexture. No hydronephrosis Left kidney measurements 4.2 x 4.2 x 8.6 cm. Urinary bladder: Normal mucosa. IMPRESSION: No hydronephrosis.
== END 2019-03-02 14:49 | disposition home or self-care (01) ==
LOC: BICULT 14:48
PROVIDERS: ATTEND Internal Medicine Nephrology
DX: N18.4 Chronic kidney disease, stage 4 (severe) (principal)
CPT/HCPCS: 76770

== ENCOUNTER 2019-04-27 12:34 | Outpatient (CLI) | payer MEDICARE, BC, OTHER ==
--- NOTE | 2019-04-27 13:18 | CT ---
CT abdomen and pelvis noncontrast HISTORY: Dysuria. Hematuria. FINDINGS: Each renal collecting system, ureter, and urinary bladder are decompressed without stone ap parent. Prominent calcification throughout the arterial structures with fusiform ectasia of the lower abdominal aorta. Leftward convex rotatory scoliotic curvature of the lumbar spine. Severe degen erative changes including gas within a posterior disc herniation at the L4-5 level. Lack of contrast limits evaluation of the soft tissues. Small hiatal hernia. Calcified granulomata wi thin the liver. Mild distention of the stomach, duodenum, and proximal jejunum into the lower mid abdomen, where transition to decompressed more distal bowel is not well delineated. Left hip prosthes is partially visualized. IMPRESSION: No CT evidence of urinary tract obstruction or calcification. Dilated proximal small bowel with decompressed distal small bowel. Clinical correlation regarding oth er signs and symptoms of low grade proximal small bowel obstruction is required. Posterior lumbar disc herniation at the L4-5 level. Prominent degenerative changes. Atherosclerosis.
== END 2019-04-27 12:35 | disposition home or self-care (01) ==
LOC: CT 12:34
PROVIDERS: ATTEND Urology
DX: R31.29 Other microscopic hematuria (principal); M51.26 Other intervertebral disc displacement, lumbar region; M47.816 Spondylosis without myelopathy or radiculopathy, lumbar region; I70.0 Atherosclerosis of aorta
CPT/HCPCS: 74176